=== PATIENT | male | born 1955 | race African-American/Black ===

== ENCOUNTER 2017-09-10 06:12 | Day surgery (SDC) | payer MEDICARE, OTHER ==
[2017-09-10] VITALS (8 sets, daily range): BP systolic 70–94; BP diastolic 26–60; PULSE 51–71; RESP 18–20; TEMP 97.7; O2SAT 93–100
[~2017-09-10] VITALS: Ht 177.8 cm; Wt 60.9 kg
[~2017-09-10 06:12] MED LIST: ASPI81 PO; CALC667T PO; COUM5TAB PO; DIALTAB2 PO; LIPI10TA PO; METO25 PO; PROT40TA PO
[2017-09-10] MEDS ORDERED: IOHEXOL 350 MG/ML 100 ML BTL (for RAD DIAG) OTHER ONE (06:13)
[2017-09-10] MEDS ORDERED: ASPI81CH7 CHEW (07:39)
[2017-09-10] MEDS ORDERED: PANT20TA2 PO (07:39)
[2017-09-10] MEDS ORDERED: CALC1CAP PO (07:39)
[2017-09-10] MEDS ORDERED: METO25TA3 PO (07:39)
[2017-09-10] MEDS ORDERED: VITA500T83 PO (07:39)
[2017-09-10] MEDS ORDERED: ATOR10TA15 PO (07:39)
[2017-09-10] MEDS ORDERED: DIALCAP PO (07:39)
[2017-09-10] MEDS ORDERED: LACTATED RINGER'S 1000 ML INJ 1,000 ML IV SCH (08:15)
[2017-09-10 08:18] LABS: AUTOMATED NEUTROPHIL # 3.2 TH/MM3 (1.8-7.7); BASOPHIL % 0.9 % (0.0-2.0); EOSINOPHIL # 0.7 TH/MM3 (0-0.4); EOSINOPHIL % 13.8 % (0.0-4.0); HEMATOCRIT 36.4 % (39.0-51.0); HEMOGLOBIN 12.3 GM/DL (13.0-17.0); LYMPH % 12.9 % (9.0-44.0); LYMPHOCYTE # 0.6 TH/MM3 (1.0-4.8); MEAN CELL VOLUME 91.7 FL (80.0-100.0); MEAN CORPUSCULAR HEMOGLOBIN 31.1 PG (27.0-34.0); MEAN CORPUSCULAR HGB CONC 33.9 % (32.0-36.0); MEAN PLATELET VOLUME 7.9 FL (7.0-11.0); MONO % 7.9 % (0.0-8.0); MONOCYTE # 0.4 TH/MM3 (0-0.9); NEUT % 64.5 % (16.0-70.0); PLATELET COUNT 154 TH/MM3 (150-450); RED BLOOD COUNT 3.96 MIL/MM3 (4.50-5.90); RED CELL DISTRIBUTION WIDTH 19.8 % (11.6-17.2); WHITE BLOOD COUNT 4.9 TH/MM3 (4.0-11.0)
[2017-09-10 08:21] LABS: INTERNATIONAL NORMALIZED RATIO 1.3 RATIO; PROTHROMBIN TIME - PATIENT 12.8 SEC (9.8-11.6)
[2017-09-10] MEDS ORDERED: MIDAZOLAM HCL 2 MG/2 ML VIAL ONE (08:44)
[2017-09-10 08:55] LABS: BICARBONATE 33.8 MEQ/L (21.0-32.0); CALCIUM 9.9 MG/DL (8.5-10.1); CREATININE 9.94 MG/DL (0.60-1.30)
[2017-09-10] MEDS ORDERED: HEPARIN SODIUM - IV 10,000 UNITS/10 ML VIAL ONE (09:25)
--- NOTE | 2017-09-10 09:44 | PD.RAD ---
Post Procedure Progress Note Pre Procedure Diagnosis: (1) AV fistula stenosis Post Procedure Diagnosis: (1) AV fistula stenosis Procedure Date: Sep 10, 2017 Supervising Radiologist: Cam Burrows Proceduralist/Assist: Jose Del Real RT(R), RT Jimy(R)(CV) Anesthesia: Conscious Sedation Plan of Activity Patient to Unit: ROPU Patient Condition: Good See PACS Report for procedural detail/treatment Cam Burrows MD Sep 10, 2017 09:44
--- NOTE | 2017-09-10 11:39 | RADRPT ---
EXAM DATE/TIME: 09/10/2017 09:01 [facility] COMPARISON: EVAL ARM DIALYSIS SHUNT, LEFT, June 18, 2015, 9:01. INDICATIONS : Patient presents with end stage renal disease in need of left arm fistulagram with venous angioplast y. MEDICAL HISTORY : HTN Former smoker SURGICAL HISTORY : Aortic and mitral valve replacement Pacemaker Left arm A/V fistula Parathyroid removed ENCOUNTER: Initial ACUITY: >1 year PAIN SCORE: 0/10 LOCATION: N/A FLUORO TIME: 3.9 minutes IMAGE SERIES: 7 ACCESS SITE: Left Basilic vein SEDATION TIME: 30 minutes CONTRAST: 35 cc Omnipaque (iohexol) 350 MEDICATION(S): 1.) 0.5 mg midazolam (Versed) IV 2.) 100 mcg fentanyl (Sublimaze) IV 3.) 3,000 units Heparin IV DEVICE(S): 1.) Left basilar vein 8.0 mm x 40 mm 75 cm MASS [employer] MANAGER balloon 2.) Left basilar vein 12.0 mm x 40 mm 75 cm MASS SPECTROMETRY MANAGER balloon 3.) Left subclavian vein 12.0 mm x 40 mm 75 cm MASS SPECTROMET[employer] MANAGER balloon PROCEDURE : 1. Ultrasound guided puncture of the venous limb of the fistula. 2. Evaluation of dialysis graft. 3. Upper extremity venogram 4. Superior venacavogram. 5. Angioplasty of the proximal outflow basilic vein with 8mm and 12 mm balloons 6. Angioplasty of the central left subclavian vein with 12 mm balloon 7. Conscious sedation with continuous EKG and oximetry monitoring. The risks, benefits and alternatives to the procedure were explained and verbal and written consent w as obtained. The site was prepped in sterile fashion. Full sterile technique was used, including ca p, mask, sterile gloves and gown and a large sterile sheet. Hand hygiene and 2% chlorhexidine and/or betadine/alcohol prep was utilized per protocol for cutaneous antisepsis. Sterile gel and sterile p robe cover were utilized for ultrasound guidance. The skin and subcutaneous tissues were infiltrated with local anesthetic solution. With ultrasound and fluoroscopic guidance the arterial limb of the fistula was just beyond the arteri al anastomosis. Positive contrast was injected to evaluate the fistula and outflow of the upper extr emity and superior venacava. Redemonstration of focal moderate to severe stenosis of the proximal bas ilic outflow vein and moderate focal stenosis of the central left subclavian vein. Remaining outflow and central veins are widely patent and mature. Reflux examination was performed demonstrating a wide ly patent arterial anastomosis. Therefore, a 7 Maltese sheath was placed. The proximal basilic vein th is stenosis was subsequently dilated with 8mm and 12 mm most and balloons inflated to 20 atmospheres for 2 minutes x2 dilatations each. Followup angiography demonstrated a good angiographic result with mild to moderate residual stenosis. Similarly, the central subclavian vein stenosis was dilated with the 12 mm most and balloon. Followup angiography demonstrated excellent traffic result with no signif icant residual stenosis. Wires and catheters and sheath were then removed and hemostasis obtained wit h manual compression. The patient tolerated the procedure well and there were no complications. Conscious sedation was per formed with the prescribed dosages and duration as above in the presence of an independent trained ra diology nurse to assist in the monitoring of the patient. EKG and oximetry remained stable throughou t the procedure. CONCLUSION: 1. 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 Good angiographic result following 8mm and 12 mm balloon venoplas ty, as above. Cam Burrows MD on September 10, 2017 at 11:31 Board Certified Radiologist. This report was verified electronically.
== END 2017-09-10 13:10 | disposition home or self-care (01) ==
LOC: HROP 06:12 → HRIP 06:13 → HROP 13:10
PROVIDERS: ATTEND Internal Medicine Nephrology
DX: T82.858A Stenosis of other vascular prosthetic devices, implants and grafts, initial encounter (principal); I12.0 Hypertensive chronic kidney disease with stage 5 chronic kidney disease or end stage renal disease; N18.6 End stage renal disease; Z99.2 Dependence on renal dialysis; Z95.2 Presence of prosthetic heart valve
CPT/HCPCS: 36902; 36907; 80048; 85025; 85610; 85730; 99152; 99153; C1725; C1769; C1887; C1894; J1644; J2250; J3010; J7120; Q9967